=== PATIENT | female | born 1985 ===

== ENCOUNTER 2017-06-23 11:51 | Observation (INO) | payer MEDICAID, OTHER ==
[2017-06-23 12:13] VITALS: BMI 31.1
[2017-06-23 12:48] LABS: BASO # 0.1 K/uL (0.0-0.2); EOS # 0.2 K/uL (0.0-0.7); EOS % 2.2 % (0.0-4.0); HEMOGLOBIN 12.3 g/dL (11.0-16.0); LYMPH # 1.9 K/uL (1.0-4.3); LYMPH % 18.7 % (20.0-40.0); MEAN CELL VOLUME 89.6 fL (81.0-99.0); MEAN CORPUSCULAR HEMOGLOBIN 30.6 pg (27.0-31.0); MEAN CORPUSCULAR HGB CONC 34.2 g/dL (33.0-37.0); MEAN PLATELET VOLUME 10.7 fL (7.2-11.7); MONO # 0.6 K/uL (0.0-0.8); MONO % 6.2 % (0.0-10.0); NEUT # 7.4 K/uL (1.8-7.0); NEUT % 71.9 % (50.0-75.0); RBC 4.01 Mil/uL (3.80-5.20); RED CELL DISTRIBUTION WIDTH 13.7 % (11.5-14.5); WHITE BLOOD COUNT 10.3 K/uL (4.8-10.8)
[2017-06-23 12:59] LABS: INR 0.9; SQUAMOUS EPITHIAL 5 /hpf (0-5); URINE BACTERIA RARE (<OCC); URINE BILIRUBIN NEGATIVE (NEGATIVE); URINE BLOOD 1+ (NEGATIVE); URINE CLARITY Hazy (Clear); URINE COLOR Yellow (YELLOW); URINE GLUCOSE (UA) NORMAL (Normal); URINE LEUKOCYTE ESTERASE NEG Leu/uL (Negative); URINE PROTEIN 2+ mg/dL (NEGATIVE); URINE UROBILINOGEN NORMAL mg/dL (0.2-1.0)
[2017-06-23 13:05] LABS: ALB/GLOB RATIO 0.9 (1.0-2.1); ALBUMIN 3.3 g/dL (3.5-5.0); ALT/SGPT 38 U/L (9-52); AST/SGOT 30 U/L (14-36); BLOOD UREA NITROGEN 11 mg/dL (7-17); CALCIUM 8.2 mg/dl (8.6-10.4); GFR AFRICAN-AMERICAN > 60; GFR NON-AFRICAN AMERICAN > 60; URIC ACID 5.6 mg/dL (2.2-7.5)
[2017-06-23] MEDS ORDERED: Betamethasone Soluspan 30 mg/5mL Inj Susp IM ONE (13:30)
[2017-06-23] MEDS ORDERED: Lactated Ringer's 1,000 ML IV SCH (13:30)
--- NOTE | 2017-06-24 10:43 | US ---
PROCEDURE: HISTORY: 36 weeks HTN COMPARISON: None TECHNIQUE: Transabdominal technique primarily utilized. Color Doppler as needed FINDINGS: Study is markedly limited due to the single study in the late 3rd trimester presented now Patient apparently is asymptomatic she has hypertension. LMP 09/21/2016. Patient's estimated date by LMP is 39 weeks 3 days. A single intrauterine gestation with cardiac activity at 124 beats per minute is present. Biophysical profile is total score 8 out of 8. breathing given 2, body mo movement given 2, tone given 2 and amniotic fluid given 2. The biometric parameters are mostly between 34 and 35 gestational weeks. Mean Age by the biometric parameters is 34 weeks 3 days. presentation is cephalic. The placenta is posterior and fundal and more than 2 cm removed from the cervix. The placenta appears prominent. No gross abnormality of the chorionic or basal plate segments . Multiple placentas are not identified on this exam evaluation for this however is limited given the late stage of gestation. The cervix is closed and measures 3.1 cm. No discrete uterine masses appreciated. Study does not allow for adequate anatomical survey given late stage. Nevertheless there is a suggestion of some umbilical cord draping around the neck. The biophysical profile is as noted above. Follow-up here is advised. IMPRESSION: Single intrauterine gestation in cephalic presentation with fundal posterior prominent placenta. Placenta is more than 2 cm away from the cervix. The prominence of the placenta is worth noting. The clinical significance of it at this time is unclear. Top normal variant, gestational trophoblastic disease and non gestational trophoblastic placental tumors are all considerations. . Umbilical cord draped around the neck. At this time the biophysical profile is 8 /8. The mean ultrasound age estimate by biometric parameters is 34 weeks 3 days. The clinical dates are 39 weeks 3 days. Comments: The placental appearance an umbilical cord appearance and position was directly discussed with Dr. Buck (spelling may be incorrect) in labor and delivery at 10:30 a.m. on 06/24/2017
[2017-06-24] MEDS ORDERED: Betamethasone Soluspan 30 mg/5mL Inj Susp IM ONE (14:00)
--- NOTE | 2017-06-24 16:26 | OBDCSUM ---
Datetime: 06/24/2017 16:16 Discharged to, Provider: Home Follow up at, Provider: [facility] Disch Instr Activity: Normal activity Disch Instr Diet: Restricted, specify Discharge Diet restrict Prov: Low sodium Discharge Instructions, Provider: Routine instructions given Discharge Diagnosis, Provider: Preeclampsia Discharge Time: 06/24/2017 16:30 Follow up in weeks, Provider: Tomorrow 06/25/17 Disch Referrals: None Discharge Comment, Provider: Continue labetalol 100 mg o.o. BID Discharge Diagnosis Prov Other: Gestational hypertension 36 weeks gestation
--- NOTE | 2017-06-24 16:27 | OBPN ---
Datetime: 06/24/2017 07:08 Contraction Comments Provider: irregular FHR - Baseline A Provider: 110 Gestation - Est Wks by US: 36w 5d Presentation-Admit: Vertex IP Progress Note Comment: Subjective: Patient seen and examined. No acute events overnight. Admits to movement. States her headach e and pelvic pressure have resolved. States lower extremity swelling has decreased compared to basel ine. Offers no new complaints at this time. 12 point review of systems negative except as indicated in HPI Physical Examination: Constituational: NAD Head: AT-NC Eyes: EOMI Heart: +s1 +s2, RRR, no murmurs, no rubs, no gallops Lungs: CTA bilaterally Neuro: AAOx3, responds to verbal stimuli, follows commands, moves extremities past midline Extremities: trace edema left lower extremity Skin: warm, dry, intact Psych: normal mood, normal affect Assessment and Plan: Patient is a 31 year old female who was admitted for evaluation and treatment of headaches, p elvic pressures, and swelling in the extermities. 1. Gestational HTN, Proteinuria - secondary to pre-ecclampsia - continue with labetlol and bethamethasone - UA, CBC, CMP pendingp- will follow up - OB LTD Biophysical Profile U/S pending Patient seen with, case reviewed with, and plan approved by attending physician, Dr. Buck. Attending note: Patient seen, evaluated and examined by me with the Resident. I agree with the above as documente d. Abdomen: Gravid. Soft. Non tender in all quadrants Labs reviewed from 06/23/17: grosslywnl. except for protein 2+. 24 hours urine collection in progre ss Plan: 1) As above. 2) Complete course of betamethasone 3) Complete 24 hour urine collection 4) Anticipate discharge home Attending Note: Patient received in bed, FOB present. Denies headaches, blurred vision, scotomota, epigastric or R UQ pain. (+) AFM; denies LOF, VB; contractions. FHR: 130 bpm. (+() accels; (-) decels; (+) moderate variability. [place]: irrecular contraciton versus uterine irritability BPs noted: averaging 130s/890s-90s. 24 hour urine collection completed. Ob ultrasound reviewed: BPS 8/8; cephalic, EFW 5lb 2oz. Comment on "prominnent placenta" - signifi cance unclear. Assessment: 31 y.o. P0, 36w 5d, mild pre-eclampsia/ BP well controlled on labetalol. Category 1 t racing; BPP - reassuring. Patient is clinically stable. Plan: 1) Discharge 2) Reviewed S/S PTL and pre-eclampsia 3) Continue labetalol 100 mg p.o. BID 4) Keep appointment - Fr 06/25/17. Patient instructed to have Ob provider call for results of 24 hours urine collection 5) Continue vitamins FHR Category Provider Fetus A: Category I NICHD Variability Prov Fetus A: Moderate 6-25bpm Dilatation, Provider: deferred NICHD Decel Fetus A IP Provider: None
[2017-06-24 17:16] LABS: URINE CREATININE 136.8 mg/dL
[2017-06-24 21:12] VITALS: BP 138/77; PULSE 72; RESP 18; TEMP 97; O2SAT 96
== END 2017-06-24 16:30 | disposition home or self-care (01) ==
LOC: C.EROB 11:51 → C.4D 13:30
PROVIDERS: ADMIT Obstetrics & Gynecology; ATTEND Obstetrics & Gynecology
DX: O14.03 Mild to moderate pre-eclampsia, third trimester (principal); Z3A.36 36 weeks gestation of pregnancy
CPT/HCPCS: 76815; 76818; 80053; 81001; 82575; 83615; 84156; 84550; 85025; 85384; 85610; 85730; 86592; 86850; 86900; G0378; J0702; J7120

== ENCOUNTER 2017-06-25 17:43 | Inpatient (IN) | payer MEDICAID ==
[2017-06-25 18:21] VITALS: BMI 33.0
[2017-06-25] MEDS ORDERED: Penicillin G 5 Million Unit Vial IVPB ONE ×2 (18:21→18:53)
[2017-06-25] MEDS: Lactated Ringer's 1,000 ML IV SCH (18:49)
--- NOTE | 2017-06-25 18:53 | OBHP ---
Datetime: 06/25/2017 18:27 IP Adm Impression: Term, intrauterine IP Adm Impression Other: pre-eclampsia IP Admit Plan: Admit to unit; Initiate labor induction protocol Admit Comment, IP Provider: chief complaint- NST and induction of labor HPI 31 y/o at 37 wga sent over from clinic for induction of labor Patient was seen on 06/23 for elevated bp in [place] then discharged on 06/24 after completio n of 24 hour urine protein and celestonex2.She was sent home on labetalol 100 mg twice a day.Patient went for follow up to clinic today and was advised to come to labor and delivey.Patient denies nausea , vomiting, headache, chest pain, shortness of breath, numbness or tingling in hands and feet course uncomplicated as per patient; review of records indicate few elevated bp but normal 24 hr urine protein in apr 2017 PMH denies PSH denies OBGYN HX S Social hx denies tobacco,alcohol or illicit drug use Exam see exam section A/P 31 y/o at 37 wga with pre-eclampsia.24 hour urine protein on 06/24/17 363.Case discussed w didier chacon who recommends delivery discussed with patient about recommendation for delivery.all questiosn answered -admit patient -see orders Pelvic Type - PN: Adequate Extremities - PN: Normal Abdomen - PN: Normal Back - PN: Normal Lungs - PN: Normal Heart - PN: Normal Neurologic - PN: Normal General - PN: Normal Weight - Estimated: 3000 Presentation-Admit: Vertex Contraction Comments Provider: none Gestation - Est Wks by US: 37.0 IP Hx Assessment: The History has been Reviewed and is Current EGA AdmitDate IP: 37.0 Vital Signs Provider: Reviewed; Within Normal Limits IP Chief Complaint: Other FHR Category Provider Fetus A: Category I Dilatation, Provider: ft Effacement, Provider: 50 Station, Provider: -3 Genitourinary Exam: Normal DTRs - PN: Normal Datetime: 06/24/2017 07:08 FHR - Baseline A Provider: 110 NICHD Variability Prov Fetus A: Moderate 6-25bpm NICHD Decel Fetus A IP Provider: None
--- NOTE | 2017-06-25 18:57 | OBPN ---
Datetime: 06/25/2017 18:55 IP Progress Impression: Reassuring heart rate IP Progress Plan: Cervical Ripening IP Progress Note Comment: S-patient deneis any complaint FHT cat1 Maud no ctx sve ft/50/-3 A/P Patient being induced for pre-eclamspsia -cevridil place -strt pen G for gbs prphylaxis -monitor closely Vital Signs Provider: Reviewed Datetime: 06/25/2017 18:27 Contraction Comments Provider: none Gestation - Est Wks by US: 37.0 Weight - Estimated: 3000 Presentation-Admit: Vertex FHR Category Provider Fetus A: Category I Dilatation, Provider: ft Effacement, Provider: 50 Station, Provider: -3
--- NOTE | 2017-06-25 18:57 | OBADHP ---
Datetime: 06/25/2017 18:55 Vital Signs Provider: Reviewed Datetime: 06/25/2017 18:27 IP Adm Impression Other: pre-eclampsia Admit Comment, IP Provider: chief complaint- NST and induction of labor HPI 31 y/o at 37 wga sent over from clinic for induction of labor Patient was seen on 06/23 for elevated bp in [facility] then discharged on 06/24 after completio n of 24 hour urine protein and celestonex2.She was sent home on labetalol 100 mg twice a day.Patient went for follow up to clinic today and was advised to come to labor and delivey.Patient denies nausea , vomiting, headache, chest pain, shortness of breath, numbness or tingling in hands and feet course uncomplicated as per patient; review of records indicate few elevated bp but normal 24 hr urine protein in apr 2017 PMH denies PSH denies OBGYN HX S Social hx denies tobacco,alcohol or illicit drug use Exam see exam section A/P 31 y/o at 37 wga with pre-eclampsia.24 hour urine protein on 06/24/17 363.Case discussed w didier chacon who recommends delivery discussed with patient about recommendation for delivery.all questiosn answered -admit patient -see orders Pelvic Type - PN: Adequate Extremities - PN: Normal Abdomen - PN: Normal Back - PN: Normal Lungs - PN: Normal Heart - PN: Normal Neurologic - PN: Normal General - PN: Normal Weight - Estimated: 3000 Presentation-Admit: Vertex Contraction Comments Provider: none Gestation - Est Wks by US: 37.0 IP Hx Assessment: The History has been Reviewed and is Current IP Chief Complaint: Other FHR Category Provider Fetus A: Category I Dilatation, Provider: ft Effacement, Provider: 50 Station, Provider: -3 Genitourinary Exam: Normal DTRs - PN: Normal EGA AdmitDate IP: 37.0 IP Adm Impression: Term, intrauterine IP Admit Plan: Admit to unit; Initiate labor induction protocol Datetime: 06/24/2017 07:08 FHR - Baseline A Provider: 110 NICHD Variability Prov Fetus A: Moderate 6-25bpm NICHD Decel Fetus A IP Provider: None
[2017-06-25 19:00] LABS: BASO % 0.1 % (0.0-2.0); EOS % 0.1 % (0.0-4.0); HEMOGLOBIN 10.6 g/dL (11.0-16.0); LYMPH # 2.1 K/uL (1.0-4.3); LYMPH % 12.8 % (20.0-40.0); MEAN CELL VOLUME 90.5 fL (81.0-99.0); MEAN CORPUSCULAR HEMOGLOBIN 30.2 pg (27.0-31.0); MEAN CORPUSCULAR HGB CONC 33.3 g/dL (33.0-37.0); MEAN PLATELET VOLUME 10.6 fL (7.2-11.7); MONO # 1.1 K/uL (0.0-0.8); MONO % 6.7 % (0.0-10.0); NEUT # 13.2 K/uL (1.8-7.0); NEUT % 80.3 % (50.0-75.0); RBC 3.52 Mil/uL (3.80-5.20); RED CELL DISTRIBUTION WIDTH 14.1 % (11.5-14.5); WHITE BLOOD COUNT 16.5 K/uL (4.8-10.8)
[2017-06-25 19:13] LABS: SQUAMOUS EPITHIAL 4 /hpf (0-5); URINE BACTERIA RARE (<OCC); URINE BILIRUBIN NEGATIVE (NEGATIVE); URINE BLOOD NEGATIVE (NEGATIVE); URINE CLARITY Clear (Clear); URINE COLOR Yellow (YELLOW); URINE GLUCOSE (UA) NORMAL (Normal); URINE LEUKOCYTE ESTERASE NEG Leu/uL (Negative); URINE PROTEIN 1+ mg/dL (NEGATIVE); URINE UROBILINOGEN NORMAL mg/dL (0.2-1.0)
[2017-06-25 19:19] LABS: ALT/SGPT 63 U/L (9-52); BLOOD UREA NITROGEN 18 mg/dL (7-17); CALCIUM 8.4 mg/dl (8.6-10.4); GFR AFRICAN-AMERICAN > 60; GFR NON-AFRICAN AMERICAN > 60; URIC ACID 5.9 mg/dL (2.2-7.5)
[2017-06-25 19:20] LABS: ALB/GLOB RATIO 1.1 (1.0-2.1); ALBUMIN 3.3 g/dL (3.5-5.0); AST/SGOT 45 U/L (14-36)
[2017-06-25] MEDS: Penicillin G Potassium 2.5 MU in Sodium Chloride 0.9% 100 ML IVPB SCH (23:00)
[2017-06-26] MEDS: Lactated Ringer's 1,000 ML IV SCH ×2 (02:30→11:30)
[2017-06-26] MEDS: Penicillin G Potassium 2.5 MU in Sodium Chloride 0.9% 100 ML IVPB SCH ×5 (03:00→17:36)
[2017-06-26] MEDS ORDERED: Labetalol 25mg/5ml Syringe IVP STA (07:40)
[2017-06-26] MEDS ORDERED: Magnesium Sulfate 4 gm/100 ml 4 GM/100 ML BAG IVPB ONE (07:40)
[2017-06-26] MEDS ORDERED: Labetalol 25mg/5ml Syringe ONE (07:42)
[2017-06-26] MEDS ORDERED: Magnesium Sulfate 20 gm 20 GM/500 ML BAG IV SCH (07:45)
--- NOTE | 2017-06-26 08:06 | OBPN ---
Datetime: 06/26/2017 07:55 IP Progress Impression: Normal progression of labor; Gest. HTN/PreEclampsia/Eclampsia IP Progress Plan: Continue present management Membranes, Provider: Intact Contraction Comments Provider: q 4 FHR - Baseline A Provider: 125 Gestation - Est Wks by US: 37.1 Presentation-Admit: Vertex IP Progress Note Comment: @ 37.1 wks GA admitted by previous hospitalist ta elelvated blood p ressures, s/p celestone x 2, s/p cervidil due for removal this morning. Upon evauating the patient and history, pt with elevated bp, intially dc home on labetaol with 24 hour urien collection, since admission bp elevated 150/90s+ and reporting headache. pt dneis any blur ry vision, ruq/epigiast pain. Labs from 3/16/ 4pm with elevated LFTS. PBP elevated this mpring systol ic 166, labetol 20mg IV push ordered with Mg So4, however repeat bp after Mg 156/82, labetaol held. P t examined, cervidil removed. Pt report irregular cramping, denies any lof, vb, +FM. VS: 150-160/90-100s PE GEN: NAD AAO x 3 RESP: cbtab/l CVS: RRR, +S1/S2 ABD: softn< NT, ND, palpble ctx, no ruq/epigastric pain VE: 0/0/-3 EXT DTR 2+b/l A/P @ 37.1 wks GA with Preeclmapsia wit severe features -Magnesium Sulfate 4mg IV, loading dose, followed by 2gram mainetence -mcintosh cathether -Urine Ins/Outs -BP paramaters >160/100 Labaetol 20mg IV push if needed (held due ot repeta bp 156/82) -s/p cervidil -for continued IOL Pitocin -pain managment -repeat PI Labs above process discussed h patient adn partner in detail all questions answerd Vital Signs Provider: Reviewed Vital Signs Provider Details: BP 166/82 s/pMag 156/82 FHR Category Provider Fetus A: Category I NICHD Variability Prov Fetus A: Moderate 6-25bpm Dilatation, Provider: 0 Effacement, Provider: 0 Station, Provider: -3 NICHD Decel Fetus A IP Provider: None
[2017-06-26] MEDS ORDERED: Oxytocin 30 UNIT 30 UNITS/500 ML BAG IV SCH (08:30)
[2017-06-26 08:35] LABS: BASO # 0.1 K/uL (0.0-0.2); BASO % 0.5 % (0.0-2.0); EOS # 0.1 K/uL (0.0-0.7); EOS % 0.4 % (0.0-4.0); HEMOGLOBIN 10.7 g/dL (11.0-16.0); LYMPH # 2.5 K/uL (1.0-4.3); LYMPH % 19.3 % (20.0-40.0); MEAN CELL VOLUME 91.4 fL (81.0-99.0); MEAN CORPUSCULAR HEMOGLOBIN 30.7 pg (27.0-31.0); MEAN CORPUSCULAR HGB CONC 33.6 g/dL (33.0-37.0); MONO # 0.9 K/uL (0.0-0.8); MONO % 6.8 % (0.0-10.0); NEUT # 9.4 K/uL (1.8-7.0); RBC 3.48 Mil/uL (3.80-5.20); RED CELL DISTRIBUTION WIDTH 14.2 % (11.5-14.5); WHITE BLOOD COUNT 12.9 K/uL (4.8-10.8)
[2017-06-26] MEDS ORDERED: Magnesium Sulfate 20 gm 20,000 MG/500 ML BAG IV ONE ×2 (08:40→19:48)
[2017-06-26] MEDS ORDERED: Oxytocin 30 UNIT 30 UNITS/500 ML BAG IV ONE (08:42)
[2017-06-26 08:43] LABS: SQUAMOUS EPITHIAL 19 /hpf (0-5); URINE BACTERIA RARE (<OCC); URINE BILIRUBIN NEGATIVE (NEGATIVE); URINE BLOOD 2+ (NEGATIVE); URINE CLARITY Hazy (Clear); URINE COLOR Yellow (YELLOW); URINE GLUCOSE (UA) NORMAL (Normal); URINE LEUKOCYTE ESTERASE NEG Leu/uL (Negative); URINE PROTEIN 2+ mg/dL (NEGATIVE); URINE UROBILINOGEN NORMAL mg/dL (0.2-1.0)
[2017-06-26 08:46] LABS: ALT/SGPT 64 U/L (9-52); AST/SGOT 44 U/L (14-36); BLOOD UREA NITROGEN 15 mg/dL (7-17); CALCIUM 8.1 mg/dl (8.6-10.4); GFR AFRICAN-AMERICAN > 60; GFR NON-AFRICAN AMERICAN > 60
[2017-06-26 09:34] LABS: INR 0.9; PROTHROMBIN TIME 9.6 SECONDS (9.7-12.2)
[2017-06-26] MEDS ORDERED: cefOXitin 2 GM in Sodium Chloride 0.9% 100 ML IVPB ONE (11:00)
[2017-06-26] MEDS ORDERED: Sodium Citrate/Citric Acid 15 ml Sol PO ONE (11:00)
[2017-06-26] MEDS ORDERED: cefOXitin IV 2 gm in Saline 2 GM/50 ML BAG IVPB ONE (12:05)
[2017-06-26] MEDS ORDERED: Sodium Citrate/Citric Acid 15 ml Sol ONE (12:05)
[2017-06-26] MEDS ORDERED: Oxytocin 20 units in LR 2,000 ML IV ONE (12:06)
--- NOTE | 2017-06-26 13:43 | OBPN ---
Datetime: 06/26/2017 13:39 IP Progress Note Comment: pt with worsening headache and blurry vison with scotomas adn RUQ pain. Pt Bp 1580/90s. Pt denies any cp, sob, dizzyness, lightheandss MgSo4 via IV. pt counlsed on preelcpamis now iwth worsenign features R/ba/i of continued IOL vs PLTLCS dw pateint. DUe ot remote natures form deliveyr, conesnt obtaine d for CxS VE: unchanged OR Anestehis awaer
[2017-06-26] MEDS ORDERED: Oxycodone/Acetaminophen 5/325 mg Tab PO PRN ×2 (14:25)
--- NOTE | 2017-06-26 14:26 | OBDS ---
DELIVERY PERSONNEL Delivery Doctor: Stefania Yang MD Scrub Nurse: Sarina Azar News Library Director: Jacey Johnson RN Anesthesiologist: rakan MATERNAL INFORMATION Provider Comments: PLTCS Severe Preeclmapisa Live female infnat, tight nuchal cord x 1, compound presentation left arm, 9,9 photovoltaic technician present for delivery weigh tof 5lbs 8 ounces normal appearint uterus, tubes and ovaires LABOR SUMMARY EDC: 07/16/2017 00:00 No. Babies in Womb: 1 LABOR INFORMATION Cervical Ripening Agents: Cervidil STAGES OF LABOR Stage 3 hrs: 0 Stage 3 min: 1 BABY A INFORMATION Delivery Date/Time: 06/26/2017 13:56 Method of Delivery: Born in Route : No : N/A Forceps: N/A Vacuum Extraction: N/A Shoulder Dystocia : No SHOULDER DYSTOCIA BABY A Delivery Date/Time: 06/26/2017 13:56 PRESENTATION/POSITION BABY A Presentation: Compound Cephalic Presentation: Vertex Breech Presentation: N/A PLACENTA INFORMATION BABY A Placenta Delivery Time : 06/26/2017 13:57 Placenta Method of Delivery: Manual Removal Placenta Status: Delivered SCORES BABY A Heart Rate 1 min: >100 bpm Resp Effort 1 min: Good Cry Reflex Irritability 1 min: Cough or Sneeze or Pulls Away Muscle Tone 1 min: Active Motion Color 1 min: Body [place], Extremities Blue SCORE 1 MIN: 9 Heart Rate 5 min: >100 bpm Resp Effort 5 min: Good Cry Reflex Irritability 5 min: Cough or Sneeze or Pulls Away Muscle Tone 5 min: Active Motion Color 5 min: Body [place], Extremities Blue SCORE 5 MIN: 9 INFANT INFORMATION BABY A Gestational Age at Delivery: 37.1 Gestational Status: Infant Outcome : Liveborn Infant Condition : Stable Sex: Female IDENTIFICATION/MEDS BABY A ID Band Number: [id number] ID Band Location: Left Leg; Left Arm Sensor Applied: Yes Sensor Number: [id number] Sensor Location : Cord Clamp Vitamin K Given : Not Given Erythromycin Given: Not Given WEIGHT/LENGTH BABY A Infant Birthweight (gms): 2500 Infant Weight (lb): 5 Infant Weight (oz): 8 Infant Length Inches: 17.50 Length cms: 44.5 CORD INFORMATION BABY A No. Cord Vessels: 3 Cord Blood Taken: Yes Suction: Mouth; Nose
--- NOTE | 2017-06-26 14:31 | PCM.SURG1 ---
Surgeon's Initial Post Op Note - Surgeon's Notes Surgeon: Uyen Yang MD Primary Therapist: Jayme Allan MD Type of Anesthesia: Spinal Pre-Operative Diagnosis: Preeclampsai with severe features, term Intrauterine Operative Findings: Live female infant, compound presentation cephalica iwth left hand, tight nuchal cord x 1 reduced, normal appearing uterus, tubes and ovaries bilaterally. Administrative Support Technician present for delivery. agprs 9,9 weigh of 5lbs [address] Jayme Allan was chef assistant and present for entire case and essential in gaining entry, ertraction, expsure, holding the bladder blade, helping to close all layers and heling to delivery infant. Post-Operative Diagnosis: same as above Operation Performed: Primary Low transverse cesearen section Specimen/Specimens Removed: Placenta Estimated Blood Loss: EBL {In ML}: 800 Blood Products Given: N/A Drains Used: No Drains Post-Op Condition: Good Date of Surgery/Procedure: 06/26/17 Time of Surgery/Procedure: 13:55
[2017-06-26 18:33] LABS: BASO # 0.1 K/uL (0.0-0.2); BASO % 0.3 % (0.0-2.0); EOS % 0.2 % (0.0-4.0); HEMOGLOBIN 11.5 g/dL (11.0-16.0); LYMPH # 1.8 K/uL (1.0-4.3); LYMPH % 10.1 % (20.0-40.0); MEAN CELL VOLUME 90.9 fL (81.0-99.0); MEAN PLATELET VOLUME 10.7 fL (7.2-11.7); MONO # 1.2 K/uL (0.0-0.8); MONO % 6.7 % (0.0-10.0); NEUT # 14.8 K/uL (1.8-7.0); NEUT % 82.7 % (50.0-75.0); RBC 3.84 Mil/uL (3.80-5.20); RED CELL DISTRIBUTION WIDTH 13.9 % (11.5-14.5); WHITE BLOOD COUNT 17.9 K/uL (4.8-10.8)
[2017-06-26 18:44] LABS: URINE BACTERIA RARE (<OCC); URINE BILIRUBIN NEGATIVE (NEGATIVE); URINE BLOOD 3+ (NEGATIVE); URINE CLARITY Clear (Clear); URINE COLOR Yellow (YELLOW); URINE GLUCOSE (UA) NORMAL (Normal); URINE LEUKOCYTE ESTERASE NEG Leu/uL (Negative); URINE PROTEIN NEGATIVE (NEGATIVE); URINE UROBILINOGEN NORMAL mg/dL (0.2-1.0)
[2017-06-26 18:45] LABS: BLOOD UREA NITROGEN 13 mg/dL (7-17); CALCIUM 7.2 mg/dl (8.6-10.4); GFR AFRICAN-AMERICAN > 60; GFR NON-AFRICAN AMERICAN > 60; URIC ACID 5.8 mg/dL (2.2-7.5)
[2017-06-26 19:02] LABS: INR 0.9
[2017-06-26 19:03] LABS: PROTHROMBIN TIME 9.6 SECONDS (9.7-12.2)
[2017-06-27 01:01] LABS: BROAD CAST 13 /lpf (0-1); GRANULAR CAST 3 /lpf (0-1); SQUAMOUS EPITHIAL 1 /hpf (0-5); URINE BACTERIA RARE (<OCC); URINE BILIRUBIN NEGATIVE (NEGATIVE); URINE BLOOD 3+ (NEGATIVE); URINE CLARITY Hazy (Clear); URINE COLOR Yellow (YELLOW); URINE GLUCOSE (UA) NORMAL (Normal); URINE LEUKOCYTE ESTERASE NEG Leu/uL (Negative); URINE PROTEIN NEGATIVE (NEGATIVE); URINE UROBILINOGEN NORMAL mg/dL (0.2-1.0)
[2017-06-27 01:10] LABS: ALBUMIN 2.8 g/dL (3.5-5.0); ALT/SGPT 79 U/L (9-52); AST/SGOT 57 U/L (14-36); BLOOD UREA NITROGEN 15 mg/dL (7-17); CALCIUM 6.7 mg/dl (8.6-10.4); GFR AFRICAN-AMERICAN > 60; GFR NON-AFRICAN AMERICAN > 60
--- NOTE | 2017-06-27 06:20 | OBPPN ---
Datetime: 06/27/2017 06:15 PP Pain Prov: Within normal limits PP Nausea Prov: Denies PP Flatus Prov: No PP BM Prov: No PP Breasts Prov: Normal PP Heart Prov: Normal PP Lungs Prov: Normal PP Abdomen/Uterus Prov: Normal PP Lochia Prov: Normal PP Vulva/Perineum Prov: Normal PP CVA Tenderness Prov: Normal PP Extremities Prov: Normal PP C/S Incision Prov: Normal PP Progress Prov: Normal PP Impression Prov: Normal progression PP Plan Prov: Continue present management PP Progress Note Prov: pt seen and examiend adn reports pain is contrllled. pt denies any headaches, blury visoin, ruq/epigastric pain. Pt is bresta feeding and deines any fevers, chills, nause, vomiti ng, cp, sob VS see above GEN: NAD, AA Ox 3 RESP: CTAB?l CVS: RRR< +S1/S2 ABD: Soft, Appropriatel TTP over incsion ,no guarding no rebound tendners, no rigidty, +BS Incsion C/?D/I healing wlel No uterien tendneres VE; Minimal lochia non fouls semlling A/P s/p PLTCS POD #1 with preelcmapisa with elevated bps -Labeteol 200mg BID -BP parameants -dc mcintosh -d/c mag -AM labs reviwed: LFTS Stable, WBC 17, repeat in AM -advance diet as tolerated -encourge ambuatin out of bed, breast feeding -bowel regimen Vital Signs Provider PP: Reviewed Vital Signs Provider Details PP: VS 120-160/70-90s
[2017-06-27] MEDS ORDERED: Bisacodyl 5mg EC Tab PO ONE (14:26)
[2017-06-27] MEDS: Simethicone 80 mg Chewtab PO SCH ×2 (17:58→22:11)
--- NOTE | 2017-06-28 07:57 | OP ---
PROCEDURE DATE: 06/26/2017 SURGEON: Uyen Yang MD MANAGER OF REVENUE: Jayme Allan MD ANESTHESIA: Spinal. PREOPERATIVE DIAGNOSES: Preeclampsia with severe seizures, term intrauterine . POSTOPERATIVE DIAGNOSES: Preeclampsia with severe seizures, term intrauterine . OPERATIVE FINDINGS: Live female infant, compound presentation, cephalic, tight nuchal cord x1 reduced; normal-appearing uterus, tubes, and ovaries bilaterally, primer charging tool setter present for delivery, Apgars 9 and 9, weight is [address] Jayme Allan, the surgical tech was present for the entire case, and was essential in gaining entry, retraction, exposure, holding the bladder blade, helping to closing all the layers and helping to deliver the . OPERATION PERFORMED: Primary low transverse section. SPECIMEN REMOVED: Placenta. ESTIMATED BLOOD LOSS: 800 mL. BLOOD PRODUCTS: None. COMPLICATIONS: None. DESCRIPTION OF PROCEDURE: The patient is a 31-year-old G2, P1 at 37 plus weeks that was admitted with diagnosis of preeclampsia, induction of labor, was started with Cervidil. Cervidil was removed this morning. The patient was found to be . The patient has elevated blood pressures. Magnesium sulfate was initiated due to severe seizures. Cervidil was removed. Pitocin was then started. The patient has worsening features of headache, scotomas, and right upper pain. The patient was counseled upon continuing induction versus primary low-transverse section. The patient apparently opted for section. Consent was obtained. Risks, benefits, alternatives, and indications were discussed with the patient. The patient was transferred to the operating room where she was given spinal anesthesia. Once it was found to be adequate, the patient was placed on the operating table in the dorsal supine position. The patient was then prepped and draped in the usual sterile fashion. Time-out confirmed correct patient and correct procedure. A Pfannenstiel skin incision was made with a scalpel and carried down to the underlying layer of the fascia with the Bovie. The fascia was incised in the midline and the incision was extended laterally with Bovie. The inferior aspect of the fascial incision was grasped with Allis and Adrian clamps, and the underlying rectus muscles dissected off bluntly. Attention was then turned to the inferior aspect in a similar fashion, which was grasped with Allis and Adrian clamps and the underlying rectus muscles were dissected off bluntly. The rectus muscle was then bluntly in the midline. The peritoneum was identified and entered in the clear space. The incision was extended laterally and superiorly until there was good visualization of the bladder. The lower end of the [place] was then reinserted. The lower uterine segment was incised in a transverse fashion. The uterine incision was extended laterally bluntly. Amniotic membranes were then ruptured. There was clear fluid noted. The surgeon's hand entered the uterine cavity with cephalic presentation with compound presentation, nuchal cord x1 was reduced followed by delivery of the shoulders, followed by delivery of the body. Both oral and nasal passages of the baby were bulb suctioned. Umbilical cord was clamped and cut. Baby was handed off to the awaiting primer charging tool setter. Cord blood and cord gases were collected and sent x2. The placenta was then delivered manually. The uterus was exteriorized and cleared of all clots and debris. The uterine incision was repaired with 0-Vicryl in a running continuous locked fashion. A second layer of the same suture was used to close the uterus in a running imbricated manner. The fundus appeared to be formed, but the lower uterine segment appeared to be boggy even after the addition of Pitocin use by Anesthesia. In addition, Hemabate was administered intramuscularly, and there was great tone of lower uterine segment. There was good hemostasis noted at the uterine incision site. There was normal tubes and ovaries bilaterally. The uterus was then returned to the abdomen and paracolic gutters were cleared off all clots and debris, and the peritoneum was reapproximated and closed with 2-0 chromic in a running continuous fashion. The rectus was reapproximated with 2-0 chromic in an interrupted manner. The fascia was reapproximated and closed with 0-Vicryl in a running continuous fashion. Subcutaneous space was closed with 2-0 plain in an interrupted manner. The skin was reapproximated and closed with howard. At the end of the procedure, all needles, sponge, and instrument counts were noted to be correct x2. The patient tolerated the procedure well and was transferred to the recovery room in stable condition. Uyen Yang MD
[2017-06-28 08:07] LABS: BASO # 0.1 K/uL (0.0-0.2); BASO % 0.4 % (0.0-2.0); EOS # 0.1 K/uL (0.0-0.7); EOS % 0.9 % (0.0-4.0); HEMOGLOBIN 10.2 g/dL (11.0-16.0); LYMPH # 2.4 K/uL (1.0-4.3); LYMPH % 17.4 % (20.0-40.0); MEAN CELL VOLUME 90.4 fL (81.0-99.0); MEAN CORPUSCULAR HEMOGLOBIN 30.4 pg (27.0-31.0); MEAN CORPUSCULAR HGB CONC 33.6 g/dL (33.0-37.0); MEAN PLATELET VOLUME 10.4 fL (7.2-11.7); MONO # 0.9 K/uL (0.0-0.8); MONO % 6.2 % (0.0-10.0); NEUT # 10.3 K/uL (1.8-7.0); NEUT % 75.1 % (50.0-75.0); RBC 3.37 Mil/uL (3.80-5.20); RED CELL DISTRIBUTION WIDTH 13.9 % (11.5-14.5); WHITE BLOOD COUNT 13.7 K/uL (4.8-10.8)
[2017-06-28 08:29] LABS: ALB/GLOB RATIO 0.9 (1.0-2.1); ALT/SGPT 81 U/L (9-52); AST/SGOT 52 U/L (14-36); BLOOD UREA NITROGEN 14 mg/dL (7-17); GFR AFRICAN-AMERICAN > 60; GFR NON-AFRICAN AMERICAN > 60
[2017-06-28] MEDS: Simethicone 80 mg Chewtab PO SCH ×4 (09:54→21:26)
--- NOTE | 2017-06-28 10:14 | OBPPN ---
Datetime: 06/28/2017 08:00 PP Pain Prov: Within normal limits PP Nausea Prov: Denies PP Flatus Prov: Yes PP BM Prov: No PP Breasts Prov: Not Done PP Heart Prov: Normal PP Lungs Prov: Normal PP Abdomen/Uterus Prov: Normal PP Lochia Prov: Not Done PP Vulva/Perineum Prov: Not Done PP CVA Tenderness Prov: Normal PP Extremities Prov: Normal PP C/S Incision Prov: Not Applicable PP Progress Prov: Abnormal PP Comments Phys Exam Prov: fdus below umb ext no jyotsna incision clean and dry PP Impression Prov: Normal progression PP Plan Prov: Continue present management PP Progress Note Prov: Subjective: Patient seen and examined. No acute overnight events. Denies post op complications. Admits to [facility] and is tolerating her diet. Inquires regarding addressed. Denies fever, chills, chest pa in, SOB, N/V, and urianry symptoms. 12 point review of systems negative except as indicated in the HPI. Physical Examination: Head: AT-NC Eyes: EOMI ENT: moist mucus membranes Heart: +S1, +S2, RRR, no murmurs, no rubs, no gallops Lungs: CTA bilaterally Abdomen: soft, mildly tender to palpation in lower abdomen, abdominal binder present Neuro: alert, awake, orientated x 3, responds to verbal stimuli, answers quetions appropriately, m oves extremities past midline Extremities: no clubbing, no edema, no cyanosis Skin: warm and dry Psych: normal mood, normal affect Assessment and Plan: Patient is a 31 year old female experiecning preeclampsia with severe features at term In trauterine who is s/p primary low transverse cesearen section POD #2. - encourage ambulation after meals - pain control PRN - ok to shower, do not rub incision site - monitor BP closely Vital Signs Provider PP: Reviewed; Within Normal Limits
[2017-06-29 00:14] VITALS: O2SAT 98
[2017-06-29] MEDS ORDERED: Influenza Vaccine 60 mcg/0.5 mL SYR (4YR UP) IM ONE (07:55)
--- NOTE | 2017-06-29 08:30 | OBPPN ---
Datetime: 06/29/2017 08:25 PP Pain Prov: Within normal limits PP Nausea Prov: Denies PP Flatus Prov: Yes PP Heart Prov: Normal PP Lungs Prov: Normal PP Abdomen/Uterus Prov: Normal PP CVA Tenderness Prov: Normal PP Extremities Prov: Normal PP C/S Incision Prov: Normal PP Progress Prov: Normal PP Impression Prov: Normal progression PP Plan Prov: Continue present management PP Progress Note Prov: S-patient denies any complaints.denies nausea, vomiting, headache, chest pain , shortenss pf breath, RUQ pain O-VS BP 140S/90S Lungs ctab Heart s1s2+ RRR Abdoemn soft and nontender Incision clean, dry and intact extremities no calf tenderness A/P Patient s/p csection pod 3.BP 140s/90s but ot in severe range.Patient denies any symptoms -discharge home -continue labetalol -follow up in clinic in 3 days for bp checka nd 1 week for incision check -patient given severe pre-eclampsia precautions Vital Signs Provider PP: Reviewed Vital Signs Provider Details PP: BP 140S/90S
--- NOTE | 2017-06-29 08:36 | OBDCSUM ---
Datetime: 06/29/2017 07:42 Discharged to, Provider: Home Follow up at, Provider: clinic Disch Instr Activity: Normal activity Disch Instr Diet: Regular Discharge Instructions, Provider: Routine instructions given Discharge Diagnosis, Provider: Term Delivered Discharge Time: 06/29/2017 08:35 Follow up in weeks, Provider: 1 week Disch Activity Restrictions: No sexual activity Discharge Comment, Provider: Patient is a 31 year old female experiecning preeclampsia with severe features at term intrauterine who is s/p primary low transverse cesearen section PO D #3. Post operative course was uncomplicated. Admits to experiencing bowel movements and is tolerat ing diet. On discharge date patient denies fever, chills, chest pain, SOB, abomdinal pain, N/V, diarr hea, constipation, and urinary symptoms. Patient instructed to take medications as prescribed, follow up with the outpatient clinic in 1 week from date of discharge, and return to ED for any new complic ations/symptoms. Discharge Diagnosis Prov Other: s/p csection severe pre-eclampsia Contraception after Delivery: Undecided
[2017-06-29 08:46] VITALS: BP 140/91; PULSE 89; RESP 18; TEMP 98.3
[2017-06-29] MEDS: Simethicone 80 mg Chewtab PO SCH (10:01)
== END 2017-06-29 13:00 | disposition home or self-care (01) | DRG 651 ==
LOC: C.EROB 17:43 → C.4D 18:16 → C.4M 06-27 08:00
PROVIDERS: ADMIT Student in an Organized Health Care Education/Training Program; ATTEND Student in an Organized Health Care Education/Training Program
PROC: 3E0P7VZ Introduction of Hormone into Female Reproductive, Via Natural or Artificial Opening (ICD-10-PCS; 2017-06-25)
PROC: 10D00Z1 Extraction of Products of Conception, Low, Open Approach (ICD-10-PCS; principal; 2017-06-26)
DX: O14.14 Severe pre-eclampsia complicating childbirth (principal); O32.2XX0 Maternal care for transverse and oblique lie, not applicable or unspecified; O32.6XX0 Maternal care for compound presentation, not applicable or unspecified; O69.1XX0 Labor and delivery complicated by cord around neck, with compression, not applicable or unspecified; Z3A.37 37 weeks gestation of pregnancy; Z37.0 Single live birth